=== PATIENT | male | born 1940 | race Hispanic/Latino ===

== ENCOUNTER 2023-03-17 12:10 | Outpatient (CLI) | payer OTHER ==
[~2023-03-17 12:10] MED LIST: Iopamidol 370 76% 100 ML VIAL ONE
== END 2023-03-17 12:11 | disposition home or self-care (01) ==
LOC: CT 12:10
PROVIDERS: ATTEND Urology
DX: N28.89 Other specified disorders of kidney and ureter (principal)
CPT/HCPCS: 74170; 82565; Q9967